=== PATIENT | female | born 1970 | race African-American/Black ===

== ENCOUNTER 2016-10-28 11:16 | Emergency (ER) | payer BC ==
[~2016-10-28] VITALS: Ht 172.7 cm; Wt 166.9 kg
--- NOTE | ~2016-10-28 | CT71 ---
[facility] A Service of [facility] RADIOLOGY TEXT RESULTS PATIENT: JOCELYN STAPLETON LOCATION: [facility] : 70 UNIT #: [id number] AGE: [address]: Yfn Jones MD SEX: F ORDER DR: [id number] [facility] [address] [place], [place] [address] [id number] MR#: [id number] Acc #: [id number] NAME: JOCELYN STAPLETON : 1970 SEX: F STUDY DATE/TIME: 10/28/2016 15:44 UNIT: [facility] ROOM: STUDY DESCRIPTION: CT Head Wo Contrast Attending Physician: Aryan Jones M.D. Ordering Physician: Ed Doctor [id number] [facility] Primary Care Physician: Patricia Leon M.D. MEDICAL IMAGING REPORT This report is preliminary unless electronic signature is present EXAM Head CT. HISTORY Dizziness, headaches since yesterday, right-sided head pain. TECHNIQUE This CT exam was performed with one or more of the following radiation dose reduction techniques: automatic exposure control, adjustment of mA and/or kV according to patient size, and iterative reconstruction. FINDINGS Axial noncontrast imaging brain demonstrates coarse benign calcification in the right cerebellar hemisphere measuring about 5 mm probably of no clinical significance. No mass, mass effect or midline shift. No hemorrhage or abnormal extraaxial fluid collections. Ventricles, sulci and basilar cisterns normal. Bony calvarium skull base mastoids, orbits and sinuses unremarkable. IMPRESSION 1. No acute intracranial abnormality identified. 2. Benign-appearing right posterior fossa calcification could be cerebellar in location or along the tentorium. This is not appreciably changed when compared to the patient's CT angiogram 11/29/2014. Dictated by... Jaguar Nathan M.D. THIS IS AN ELECTRONICALLY VERIFIED REPORT Jaguar Nathan M.D. at 10/28/2016 8:48 PM [facility] A Service of [facility] RADIOLOGY TEXT RESULTS PATIENT: JOCELYN STAPLETON LOCATION: [facility] : 70 UNIT #: [id number] AGE: [address]: Yfn Jones MD SEX: F ORDER DR: Parker TD: 10/28/2016 19:59 JOB #: [id number] MEDICAL IMAGING REPORT Page 1 of 1 COPY
--- NOTE | ~2016-10-28 | EKG ---
PATIENT: JOCELYN STAPLETON UNIT #: [id number] Ventricular Rate: 84 BPM Atrial Rate: 84 BPM P-R Interval: 168 ms QRS Duration: 94 ms Q-T Interval: 366 ms QTC Calculation(Bezet): 432 ms P [place]: 28 degrees Calculated R [place]: -7 degrees Calculated T [place]: 21 degrees Diagnosis Line: Normal sinus rhythm Diagnosis Line: Voltage criteria for left ventricular hypertrophy Diagnosis Line: Borderline ECG Diagnosis Line: When compared with ECG of 28-OCT-2016 11:30, Diagnosis Line: (unconfirmed) Diagnosis Line: No significant change was found Diagnosis Line: Diagnosis Line: Confirmed by ALEJANDRO PAUL MD ([id number]) on 10/29/2016 Diagnosis Line: 7:14:38 PM INTERPRETING MD: BEVERLY NEWMAN
[~2016-10-28 11:16] MED LIST: ACIPHEX20 MG PO; ASPIRIN PO; ASPIRIN81 M1 PO; B COMPLEX1 CA1 PO; B-COMPLEX 1000.4 MG; BENTYL10 MG PO; CALCIUM PO; CARAFATE; CELEBREX PO; CERTAGEN PO; CHEWABLE ASPIRI81 MG PO; CITALOPRAM HBR40 MG PO; COLESTIPOL HCL1 G PO; DIOVAN320 MG PO; EFFEXOR XR PO; FELDENE20 MG PO; FIORICET 50-321 EACH; FISH OIL500 M2 PO; GABAPENTIN600 MG PO; GLUCOPHAGE XR500 MG PO; GLUCOSAMINE CHO1 CA1 PO; GLUCOTROL XL10 MG PO; HAIR SKIN NAIL1 EACH PO; HYDROCHLOROTHIA25 MG PO; INDOCIN SR75 MG PO; JANUVIA PO; KOMBIGLYZE XR1 EAC2 PO; LANTUS100 U/ML SUBQ; LASIX PO; LIORESAL10 MG PO; LIPITOR PO; LISINOPRIL PO; LISINOPRIL10 MG PO; LOMOTIL TABLET1 TAB; LOMOTIL TABLET1 TAB PO; LOPRESSOR PO; LORTAB 7.51 TAB 7.5/; METFORMIN HCL500 M3 PO; MULTIVITAMIN1 UDCAP PO; NITROSTAT0.4 MG SL; NORVASC PO; NORVASC2.5 MG PO; NYSTATIN15 GM OINT EXT; ONGLYZA5 MG PO; PHENERGAN PR; PHENERGAN VC W120 M1 PO; PHENERGAN25 M1 PO; PHENERGAN25 MG PO; PRAVASTATIN SOD40 MG PO; PRILOSEC PO; PRILOSEC20 M1 PO; SENOKOT S1 TAB PO; SYNTHROID PO; SYNTHROID75 MCG PO; TOPAMAX PO; TOPROL XL50 MG PO; VICODIN 5/500 T1 TAB PO; VITAMIN C500 M1 PO; VYTORIN 10-801 UDTAB PO; VYTORIN 10/40 T1 TAB PO; [UNRECOGNIZED DRUG - REMARK] PO
[2016-10-28 11:58] LABS: BASOPHIL# 0.1 X10e3 (0-0.3); BASOPHIL% 0.6 % (0-2.5); EOSINOPHIL# 0.1 X10e3 (0-0.7); EOSINOPHIL% 1.3 % (0.0-7.0); HEMATOCRIT 40.3 % (35.0-45.0); HEMOGLOBIN 12.9 gm/dL (12.0-16.0); LYMPHOCYTE% 41.9 % (17.0-45.0); MEAN CELL VOLUME 87.9 FL (83-96); MEAN CORPUSCULAR HEMOGLOBIN 28.2 PG (28-34); MEAN CORPUSCULAR HGB CONC 32.1 g/dL (30-36); MEAN PLATELET VOLUME 7.8 FL (6.5-11.5); MONOCYTE# 0.5 X10e3 (0-1.0); NEUTROPHIL# 4.9 X10e3 (1.5-7.1); NEUTROPHIL% 51.2 % (40-75); PLATELET COUNT 350 X10e3 (140-420); RED BLOOD COUNT 4.59 X10e (3.90-5.30); RED CELL DISTRIBUTION WIDTH 13.7 % (11.0-15.5); WHITE BLOOD COUNT 9.6 X10e3 (4.0-10.5)
[2016-10-28 12:02] LABS: DIFF IND NO
[2016-10-28 12:09] LABS: URINE SOURCE CLEAN CATCH
[2016-10-28 12:18] LABS: URINE APPEARANCE CLEAR; URINE BILIRUBIN NEG (NEG); URINE BLOOD NEG (NEG); URINE COLOR YELLOW; URINE GLUCOSE >1000 MG/DL (NEG); URINE KETONE NEG (NEG); URINE LEUKOCYTE ESTERASE NEG (NEG); URINE NITRATE NEG (NEG); URINE PH 6.5 (5-8); URINE PROTEIN NEG (NEG); URINE SPECIFIC GRAVITY 1.024 (1.003-1.035); URINE UROBILINOGEN 0.2 MG/DL (NEG)
[2016-10-28 12:20] LABS: ALBUMIN SERUM 4.2 g/dL (3.5-5.0); BILIRUBIN, DIRECT 0.1 mg/dL (0.0-0.2); BILIRUBIN,INDIRECT 0.8 mg/dL (0.0-0.9); BILIRUBIN,TOTAL 0.9 mg/dL (0.2-2.0); BUN/CREATININE RATIO 16.25; CALCIUM SERUM 9.8 mg/dL (8.4-10.2); CREATININE SERUM 0.8 mg/dL (0.6-1.4); GLOM FILT RATE Estimated 102.6 mL/min (>60); PROTEIN TOTAL SERUM 8.7 g/dL (6.0-8.3)
[2016-10-28 12:22] LABS: CULTURE INDICATED? NO
[2016-10-28 12:24] LABS: POC - CKMB 2.3 ng/mL (0.0-7.9); POC - TROPONIN <0.05 ng/mL (<=0.05)
== END 2016-10-28 19:42 | disposition home or self-care (01) ==
LOC: CED 11:16
DX: G44.209 Tension-type headache, unspecified, not intractable (principal); R42 Dizziness and giddiness; E11.9 Type 2 diabetes mellitus without complications; I10 Essential (primary) hypertension; E03.9 Hypothyroidism, unspecified
CPT/HCPCS: 36415; 70450; 80048; 80076; 81003; 82553; 84484; 85025; 93005; 96361; 96374; 96375; 99285; J1885; J2270; J2765